=== PATIENT | male | born 1975 | race Caucasian/White ===

== ENCOUNTER 2018-02-09 12:18 | Emergency (ER) | payer OTHER ==
[2018-02-09 12:50] VITALS: BP 130/75
--- NOTE | 2018-02-09 12:51 | UC ---
Dizzy HPI - History Of Current Complaint Stated Complaint: PATEL,FEVER Time Seen by Provider: 02/09/18 12:44 Timing: Constant Severity Initially: Moderate Severity Currently: Moderate Character: Dizzy Aggravating Factor(s): Position Change Alleviating Factor(s): Lying Down Associated Signs And Symptoms: Positive: Nausea, Vomiting - Risk Factors Cardiac Risk Factors: Negative CVA Risk Factor: Negative - Allergies/Home Medications Allergies/Adverse Reactions: Allergies Allergy/AdvReac Type Severity Reaction Status Date / Time Penicillins Allergy Hives Verified 02/09/18 12:51 Home Medications: Home Medications Buprenorphine HCl/Naloxone HCl [Suboxone 4 mg-1 mg Sl Film] 1 each SL QPM [History Confirmed 02/09/18] Buprenorphine HCl/Naloxone HCl [Suboxone] 1 mis SL QAM 02/09/18 [History Confirmed 02/09/18] PMH/Surg Hx/FS Hx/Imm Hx Previously Healthy: Yes Review of Systems Constitutional: Fever Skin: Negative Eyes: Photophobia ENT: Negative Respiratory: Negative Cardiovascular: Negative Gastrointestinal: Abdominal Pain, Diarrhea, Nausea Motor: Negative Neurovascular: Negative Musculoskeletal: Negative Neurological: Headache Is Patient Immunocompromised?: No All Other Systems Reviewed And Are Negative: Yes Physical Exam Triage Information Reviewed: Yes Appearance: Ill-Appearing, Thin Vital Signs Reviewed: Yes Eye Exam: Normal Eyes: Positive: Conjunctiva Clear ENT Exam: Normal ENT: Positive: Normal ENT inspection Neck exam: Normal Neck: Positive: Other: - positive Kernig sign Respiratory Exam: Normal Respiratory: Positive: Chest non-tender Cardiovascular Exam: Normal Cardiovascular: Positive: RRR Abdominal Exam: Normal Abdomen Description: Positive: Soft, Other: - tender right lower quadrant, left lower quadrant, no rebound Psychological Exam: Normal Skin Exam: Normal - no track hodgson seen Dizzy Course/Dx - Differential Dx/Diagnosis Provider Diagnoses: fever, r/o meningitis Discharge - Sign-Out/Discharge Documenting (check all that apply): Patient Departure - Discharge Plan Condition: Guarded Disposition: TRANS HIGHER [facility] OF CARE FAC Referrals: Gui Crisostomo MD [Primary Care Provider] - - Billing Disposition and Condition Condition: GUARDED Disposition: Trans Higher Lvl of Care Fac
== END 2018-02-09 13:05 | disposition short-term general hospital (02) ==
LOC: UCCORT 12:18
DX: R50.9 Fever, unspecified (principal); Z88.0 Allergy status to penicillin
CPT/HCPCS: 99212; G0463

== ENCOUNTER 2018-02-10 16:19 | Emergency (ER) | payer OTHER ==
--- OUTSIDE RECORDS SUMMARY | 2018-02-10 17:57 | XMS REPORT ---
:1975 External Reference #:[id number] Author Organization [facility] Address [address] [place] [address] Phone [phone] Care Team Providers Name Role Phone HCP/LW on file Primary Care Physician Unavailable Payers Type Date Identification Numbers Payment Provider Subscriber Medicaid Expires: 2016 Policy Number: [id number] Medicaid Rufus Mcgee PayID: [id number] [address] [place] [address] Medigap Part B Expires: 2015 Policy Number: [id number] Medicaid Rufus Mcgee PayID: [id number] [address] [place] [address] Medigap Part B Expires: 2014 Policy Number: [id number] Medicaid Rufus Mcgee PayID: [id number] [address] [place] [address] Commercial Expires: 2017 Policy Number: Benjie Mcgee [id number] [employer] Name: [employer] [address] PayID: [id number] [place] [address] Problems Date Description Provider Status Onset: 07/08/2015 Opioid dependence, uncomplicated Gui Crisostomo M.D. Active Onset: 10/03/2015 Moderate recurrent major depression Gui Crisostomo M.D. 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 / film every afternoon; suboxone prescriber# [id number]; rx due 02/03/18 Suboxone 08/10/ Hx Film 8-2mg 30unit 1/2 film by Vivi Crisostomo, 2017 - s mouth Gui, 10/05/ 2x/day; M.D. 2017 suboxone prescriber# [id number]; Rx due 09/09/17 Suboxone 02/23/ Hx Film 8-2mg 15unit /2 film by Vivi Crisostomo 2016 - s mouth every Gui, morning; M.D. 2017 suboxone prescriber# [id number]; rx due 07/23/17 Suboxone 01/13/ Hx Film 8-2mg 30unit 1 by mouth Vivi Crisostomo 2016 - s every Gui, 02/23/ morning; M.D. 2016 suboxone prescriber# [id number] Suboxone 12/31/ Hx Film 8-2mg 15unit 1/2 film by Vivi Crisostomo 2016 - s mouth every Gui, morning; M.D. 2016 suboxone prescriber# [id number] Suboxone 10/06/ Hx Film 8-2mg 7units 08/04 film by Vivi Crisostomo 2016 - mouth every Gui, 12/31/ morning; M.D. 2016 suboxone prescriber# [id number] Suboxone 08/04/ Hx Film 8-2mg 19unit use 12/06 of Vivi Crisostomo 2016 - s a film Gui, 10/06/ every M.D. 2016 morning as described; rx may be filled on or after 08/06/16; suboxone prescriber# [id number] Suboxone 04/28/ Hx Film 8-2mg 21unit / film F11.20 Andressa, 2016 - s every [place], 08/04/ morning; M.D. 2016 suboxone prescriber# [id number] Buprenorphine 04/26/ Hx Tablets 8-2mg 21tabs 10/02 film F11.20 Silcoff, HCL-Naloxone 2015 - Sub every Gui, [facility] 04/28/ morning; rx M.D. 2015 due 04/28/16; suboxone prescriber# [id number] Suboxone 12/25/ Hx Film 8-2mg 30unit 10/02 film F11.20 Andressa, 2016 - s every [place], 04/26/ morning and M.D. 08/04 film in the afternoon; rx due 03/29/16; suboxone prescriber# [id number] Cymbalta 10/30/ Hx Caps DR 60mg 30caps take as F33.1 Andressa 2015 - Part directed, Gui, 07/10/ no more M.D. 2015 than 1 capsule/day ; for mood Suboxone 10/30/ Hx Film 8-2mg 30unit take 6mg F11.20 Andressa, 2016 - s (10/02 film) [place], 12/25/ in the M.D. 2015 morning and 1-2mg (08/08-08/04 film) in the afternoon Cymbalta 07/29/ Hx Caps DR 60mg 1 capsule F33.1 Unknown 2014 - Part every 4-5 10/30/ days; for 2015 mood Buprenorphine 06/25/ Hx Tablets 8-2mg 30tabs 1 tab by F11.20 Silcoff, HCL-Naloxone 2014 - Sub mouth every [place], [facility] 10/30/ morning (or M.D. 2015 3/4in in the morning and 08/04 in afternoon); suboxone prescriber# [id number] Buprenorphine 06/25/ Hx Tablets 2-0.5mg 30tabs 1 tab by F11.20 Silcoff, HCL-Naloxone 2014 - Sub mouth every Gui, [facility] 07/28/ day in the M.D. 2014 afternoon; suboxone prescriber# [id number] Cymbalta 06/24/ Hx Caps DR 60mg as F32.9 Unknown 2014 - Part directed, 06/25/ tapering 2014 down-1 by mouth every 5 days Buprenorphine 06/24/ Hx Tablets 8mg as Unknown HCL 2015 - Sub directed. 2 06/25/ by mouth 2014 every morning; for opioid addiction-t apering down Immunizations CPT Code Status Date Vaccine Lot # [id number] Given 04/26/2016 Influenza Virus Vaccine, Quadrivalent, Split, [id number] Preservative Free [id number] Given 07/08/2015 Influenza Virus Vaccine, Quadrivalent, Split, [id number] Preservative Free [id number] Refused 06/15/2017 Influenza Virus Vaccine, Quadrivalent, Split, Preservative Free Vital Signs Date Vital Result Comment 02/10/2018 BP Systolic 122 mmHg BP Diastolic 68 mmHg Body Temperature 98.1 F Weight 134.00 lb with shoes 01/20/2018 BP Systolic 122 mmHg BP Diastolic 64 mmHg 12/19/2017 BP Systolic 120 mmHg BP Diastolic 80 mmHg Weight 146.00 lb w/shoes 11/28/2017 BP Systolic 102 mmHg BP Diastolic 72 mmHg Weight 142.00 lb with shoes 10/24/2017 BP Systolic 110 mmHg BP Diastolic 70 mmHg Weight 150.00 lb w/workboots 10/05/2017 BP Systolic 116 mmHg BP Diastolic 76 mmHg Height 71 inches 5'11" w/workboots Weight 149.00 lb w/workboots BMI (Body Mass Index) 20.8 kg/m2 08/10/2017 BP Systolic 110 mmHg BP Diastolic 82 mmHg Weight 153.00 lb with shoes 06/15/2017 BP Systolic 126 mmHg BP Diastolic 82 mmHg Weight 156.00 lb 04/20/2017 BP Systolic 100 mmHg BP Diastolic 64 mmHg Weight 156.00 lb 02/23/2017 BP Systolic 100 mmHg BP Diastolic 80 mmHg Height 70 inches 5'10" Weight 154.00 lb BMI (Body Mass Index) 22.1 kg/m2 01/12/2017 BP Systolic 108 mmHg BP Diastolic 58 mmHg 12/08/2016 BP Systolic 106 mmHg BP Diastolic 78 mmHg Weight 163.00 lb w/shoes 10/06/2016 BP Systolic 104 mmHg BP Diastolic 64 mmHg Weight 157.00 lb 08/04/2016 BP Systolic 102 mmHg BP Diastolic 66 mmHg Weight 162.00 lb w/shoes 07/09/2016 BP Systolic 128 mmHg BP Diastolic 85 mmHg Height 71.5 inches 5'11.50" with boots Weight 167.00 lb with boots BMI (Body Mass Index) 23.0 kg/m2 04/26/2016 BP Systolic 100 mmHg BP Diastolic 80 mmHg Weight 174.00 lb w/shoes 03/26/2016 BP Systolic 116 mmHg BP Diastolic 80 mmHg 02/23/2016 BP Systolic 102 mmHg BP Diastolic 80 mmHg 01/23/2016 BP Systolic 118 mmHg BP Diastolic 86 mmHg Weight 170.00 lb 12/26/2015 BP Systolic 120 mmHg BP Diastolic 80 mmHg Height 71 inches 5'11" w/shoes Weight 170.00 lb w/shoes BMI (Body Mass Index) 23.7 kg/m2 12/01/2015 BP Systolic 120 mmHg BP Diastolic 78 mmHg Weight 168.00 lb with shoes 10/31/2015 BP Systolic 120 mmHg BP Diastolic 80 mmHg Weight 168.00 lb with sneakers 10/03/2015 BP Systolic 132 mmHg BP Diastolic 70 mmHg Weight 167.00 lb 08/29/2015 BP Systolic 118 mmHg BP Diastolic 80 mmHg Weight 170.00 lb with sneakers 07/29/2015 BP Systolic 106 mmHg BP Diastolic 78 mmHg Weight 171.00 lb w/shoes 07/08/2015 BP Systolic 132 mmHg BP Diastolic 84 mmHg Weight 167.00 lb 06/25/2015 BP Systolic 130 mmHg BP Diastolic 86 mmHg Height 70 inches 5'10" Weight 167.00 lb BMI (Body Mass Index) 24.0 kg/m2 Results Test Date Test Result H/L Range Note Ua RFX Micro & Culture II 02/09/2018 Urine Color YELLOW Yellow 1 Urine Clarity CLEAR Clear 1 Urine Glucose - Dipstick NEGATIVE mg/dL Negative 1 Urine Bilirubin - Dipstick NEGATIVE Negative 1 Urine Ketone NEGATIVE mg/dL Negative 1 Urine Specific [place] <=1.005 Low 1.010-1.030 1 Urine Blood NEGATIVE Negative 1 Urine PH 6.5 6.5-7.5 1 Urine Protein - Dipstick NEGATIVE mg/dL Negative 1 Urine Urobilinogen - Dipstick 0.2 E.U./dL 0.2-1.0 1 Urine Nitrite - Dipstick NEGATIVE Negative 1 Urine Leuk Esterase NEGATIVE Negative 1 Source: URINE, CLEAN CAT <SEE NOTE> 1, 2 Laboratory test finding 10/08/2017 Actin (Smooth Muscle) Antibody 6 units 0-19 3, 4 Ferritin 123 ng/mL 26-388 3 Liver Function Tests 10/08/2017 Total Protein 7.7 g/dL 6.4-8.2 3 Albumin 4.1 g/dL 3.4-5.0 3 Globulin 3.6 g/dL 1.9-4.3 3 Alb/Glob 1.1 ratio 3 Bilirubin,Total 0.8 mg/dL 0.2-1.0 3 Bilirubin,Direct 0.2 mg/dL 0.0-0.2 3 Bilirubin,Indirect 0.6 mg/dL 0.0-0.9 3 Sgot/Ast 20 U/L 15-37 3 SGPT/Alt 31 U/L 12-78 3 Alkaline Phosphatase 78 U/L 45-117 3 Iron-Tibc-%Sat 10/08/2017 Serum Iron 184 g/dL High 65-175 3 Total Iron Binding Capacity 393 g/dL 250-450 3 Transferrin %Saturation 47 % 12-57 3 Comprehensive Gloria Panel 10/08/2017 Anti-Dna Antibody ([place]) <1 IU/mL 0- 9 3, 5 SM Antibody <0.2 AI 0.0-0.9 3 UNDER BASTER Antibody <0.2 AI 0.0-0.9 3 Sjogrens Antibodies (Ssa) <0.2 AI 0.0-0.9 3 Antichromatin Antibodies <0.2 AI 0.0-0.9 3 Diamond-1 Antibody <0.2 AI 0.0-0.9 3 Sjogrens Antibodies (SSB) <0.2 AI 0.0-0.9 3 Centromere B Antibodies < 0.2 AI 0.0-0.9 3 Scleroderma Antibodies, SCL-70 <0.2 AI 0.0-0.9 3 See below: (SEE NOTE) 3, 6 Laboratory test finding 10/08/2017 Endomysial Antibody Iga Negative Negative 3 CBS W/Automated Diff 10/08/2017 White Blood Count 7.1 K/uL 3.4-10.5 3 Red Blood Count 4.97 M/uL 4.20-5.80 3 Hemoglobin 15.7 gm/dL 12.8-17.0 3 Hematocrit 45.4 % 38.0-48.0 3 Mean Cell Volume 91.3 fl 80.0-96.0 3 Mean Corpuscular HGB 31.6 pg 27.0-33.0 3 Mean Corpuscular HGB Conc 34.6 g/dL 31.7-36.0 3 Platelet Count 331 K/uL 155-360 3 Red Cell Distri Width SD 43.5 fl 36-51 3 Red Cell Distri Width %CV 13.4 % 11.6-15.8 3 Mean Platelet Volume 9.5 fL 6.6-10.6 3 Neut% 57.0 % 33.0-73.0 3 Lymph % 33.1 % 20.0-42.0 3 [place] % 6.5 % 0.0-10.0 3 Eo% 2.7 % 0.0-6.6 3 Bas% 0.7 % 0.0-1.1 3 Neut# 4.04 K/uL 1.8-7.0 3 Lymph # 2.35 K/uL 1.0-4.0 3 [place] # 0.46 K/uL 0.0-0.8 3 Eos # 0.19 K/uL 0.0-0.5 3 Baso # 0.05 K/uL 0.0-0.1 3 Basic Metabolic Panel 10/08/2017 Glucose 73 mg/dL Low 74-106 3 BUN 6 mg/dL Low 7-18 3 Creatinine 0.9 mg/dL 0.6-1.3 3 Glom Filtration Rate, Estimate >60 mL/min >60 3 If >60 mL/min >60 3, 7 BUN/Creat 6.6 ratio 3 Sodium 140 mmol/L 136-145 3 Potassium 3.7 mmol/L 3.5-5.1 3 Chloride 109 mmol/L High 98-107 3 Carbon Dioxide 24 mmol/L 21-32 3 Anion Gap 7 mEq/L Low 8-16 3 Calcium 8.9 mg/dL 8.5-10.1 3 Urine Drug Screen Inhouse 06/15/2017 Ua Cocaine - Ua Opiates - Ua Amphetamines - Urine Methanphetamines - Urine Benzodiazepines QN [place] - Urine Oxycodone QL - Laboratory test 04/26/2017 Vitamin D,25-Hydroxy 38.5 ng/mL 30.0-100.0 8 , 9 finding Laboratory test 04/26/2017 Testosterone Free 10.3 pg/mL 6.8-21.5 8 finding Direct Testosterone,Serum 385 ng/dL 264-916 8, 10 Laboratory test finding 04/26/2017 Hepatitis B Surface Negative Negative 8, 11 Antigen Ceruloplasmin 20.1 mg/dL 16.0-31.0 8 Protime 04/26/2017 Protime 13.0 seconds 12.0-14.4 8 Inr 1.0 0.9-1.1 8, 12 Urine Drug Screen Inhouse 04/20/2017 Ua Cocaine - Ua Opiates - Ua Amphetamines - Urine Methanphetamines - Urine Benzodiazepines QN [place] - Urine Oxycodone QL - Urine Drug Screen Inhouse 07/09/2016 Ua Cocaine - Ua Opiates - Ua Amphetamines - Urine Methanphetamines - Urine Benzodiazepines QN [place] - Urine Oxycodone QL - Urine Drug Screen Inhouse 02/23/2016 Ua Cocaine - Ua Opiates - Ua Amphetamines - Urine Methanphetamines - Urine Benzodiazepines QN [place] - Urine Oxycodone QL - Urine Drug Screen Inhouse 10/03/2015 Ua Cocaine - Ua Opiates - Ua Amphetamines - Urine Methanphetamines - Urine Benzodiazepines QN [place] - Urine Oxycodone QL - Laboratory test finding 07/29/2015 Hepatitis C Antibody Nonreactive Nonreactive Liver Function Panel 07/29/2015 Total Protein 7.0 g/dL 6.4-8.9 Albumin 4.5 g/dL 3.2-5.2 Globulin 2.5 g/dL 2-4 Albumin/Globulin Ratio 1.8 1-3 Total Bilirubin 0.60 mg/dL 0.2-1.0 Direct Bilirubin 0.10 mg/dL 0.03-0.18 Indirect Bilirubin 0.5 mg/dL 0.3-1.0 Alkaline Phosphatase 79 U/L 34-104 Alt 70 U/L High 7-52 Ast 48 U/L High 13-39 Urine Drug Screen Inhouse 06/25/2015 Ua Cocaine - Ua Opiates - Ua Amphetamines - Urine Methanphetamines - Urine Benzodiazepines QN [place] - Urine Oxycodone QL - 1 PATEL, FEVER, DIARRHEA, CRAMPING, CHILLS,SENT BY CC 2 URINE, CLEAN CATCH 3 R74.0 F3.1 E29.1 4 Negative 0 - 19 Weak positive 20 - 30 Moderate to strong positive >30 Actin Antibodies are found in 52-85% of patients with autoimmune hepatitis or chronic active hepatitis and in 22% of patients with primary biliary cirrhosis. 5 Negative <5 Equivocal 5 - 9 Positive >9 6 Autoantibody Disease Association Condition Frequency --------- Antinuclear Antibody, SLE, mixed connective Direct (GLORIA-D) tissue diseases --------- dsDNA SLE 40 - 60% --------- Chromatin Drug induced SLE 90% SLE 48 - 97% --------- SSA (Ro) SLE 25 - 35% Sjogren's Syndrome 40 - 70% Lupus 100% --------- SSB (La) SLE 10% Sjogren's Syndrome 30% --------- Sm (anti-Guzman) SLE 15 - 30% --------- UNDER BASTER Mixed Connective Tissue Disease 95% (U1 nRNP, SLE 30 - 50% anti-ribonucleoprotein) Polymyositis and/or Dermatomyositis 20% --------- Scl-70 (antiDNA Scleroderma (diffuse) 20 - 35% topoisomerase) Crest 13% --------- Diamond-1 Polymyositis and/or Dermatomyositis 20 - 40% --------- Centromere B Scleroderma - Crest variant 80% Performed at: RN - [facility] [address] [id number] Contact And Service Clerks Supervisor: Marlin Thomas MD, Phone: [phone] Note: Persistent reduction for 3 months or more in an eGFR <60 mL/min/1.73 m2 defines CKD. Patients with eGFR values >/=60 mL/min/1.73 m2 may also have CKD if evidence of persistent proteinuria is present. The original MDRD equation for estimated GFR is not valid for patients less than 18 years of age. Additional information may be found at www.kdoqi.org. 8 R74.0,E20.1,F33.1,E29.1 9 Vitamin D deficiency has been defined by the [place] of [employer] and an Endocrine Society practice guideline as a level of serum 25-OH vitamin D less than 20 ng/mL (1,2). The Endocrine Society went on to further define vitamin D insufficiency as a level between 21 and 29 ng/mL (2). 1. IOM ([place] of [employer]). 2010. Dietary reference intakes for calcium and D. [place]: The National Academies Press. 2. Chuck MF, Jose NC, Bessy PATEL, et al. Evaluation, treatment, and prevention of vitamin D deficiency: an Endocrine Society clinical practice guideline. JCEM. 2011 Jan; 96(7):1529-30. Performed at: RN - [facility] [address] [id number] Contact And Service Clerks Supervisor: Marlin Thomas MD, Phone: [phone] 10 Adult male reference interval is based on a population of healthy nonobese males (BMI <30) between 19 and 39 years old. madeleine Singleton.al. JCEM 2017,102;1655-7447. PMID: 47950339. 11 Performed at: RN - [facility] [address] [id number] Contact And Service Clerks Supervisor: Marlin Thomas MD, Phone: [phone] THERAPEUTIC INR RANGE: 2.0 - 3.0 DVT, Pulmonary embolus, prophylaxis against venous thrombosis or systemic embolization in high risk patients. 2.5 - 3.5 Mechanical heart valves Procedures Date CPT Code Description Status 07/08/2015 74518 Remove Impact Cerumen Requiring Instrument, Unilateral Completed Encounters Type Date Location Provider CPT E/M Dx Office Visit 01/20/2018 11:00a Main Office Gui Crisostomo M.D. 67474 F11.20 Z71.51 Office Visit 12/19/2017 10:15a Main Office Gui Crisostomo M.D. 62405 F11.20 Z71.51 Office Visit 11/28/2017 4:45p Main Office Gui Crisostomo M.D. 17211 F11.20 Z71.51 Office Visit 10/24/2017 10:15a Main Office Gui Crisostomo M.D. 86322 F11.20 Z71.51 R74.0 Office Visit 10/05/2017 2:30p Main Office Gui Crisostomo M.D. 74168 F11.20 Z71.51 R74.0 Office Visit 08/10/2017 11:00a Main Office Gui Crisostomo M.D. 43622 F11.20 Z71.51 R74.0 Office Visit 06/15/2017 10:30a Main Office Gui Crisostomo M.D. 51159 F11.20 Z71.51 R74.0 Z23 Office Visit 04/20/2017 10:30a Main Office Gui Crisostomo M.D. 98899 F11.20 Z71.51 R74.0 E29.1 Office Visit 02/23/2017 11:00a Main Office Gui Crisostomo M.D. 75492 F11.20 Z71.51 R74.0 Office Visit 01/12/2017 11:30a Main Office Gui Crisostomo M.D. 72500 F11.20 Z71.51 Office Visit 12/08/2016 2:30p Main Office Gui Crisostomo M.D. 82713 F11.20 Z71.51 Office Visit 10/06/2016 5:00p Main Office Gui Crisostomo M.D. 06579 F11.20 Z71.51 Office Visit 08/04/2016 4:45p Main Office Gui Crisostomo M.D. 04728 F11.20 Z71.51 Office Visit 07/09/2016 5:00p Main Office Gui Crisostomo M.D. 51697 F11.20 Z71.51 R74.0 E29.1 Office Visit 04/26/2016 11:15a Main Office Gui Crisostomo M.D. 67946 F11.20 Z71.51 R74.0 E29.1 Z23 Z41.8 Office Visit 03/26/2016 1:45p Main Office Gui Crisostomo M.D. 63138 F11.20 Z71.51 F33.1 R74.0 E29.1 Office Visit 02/23/2016 1:45p Main Office Gui Crisostomo M.D. 50878 F11.20 Z71.51 F33.1 R74.0 E29.1 Office Visit 01/23/2016 2:45p Main Office Gui Crisostomo M.D. 42888 F11.20 Z71.51 F33.1 R74.0 E29.1 Office Visit 12/26/2015 10:15a Main Office Gui Crisostomo M.D. 74048 F11.20 Z71.51 F33.1 Office Visit 12/01/2015 10:45a Main Office Gui Crisostomo M.D. 21098 F11.20 F33.1 Z71.51 Office Visit 10/31/2015 10:15a Main Office Gui Crisostomo M.D. 69886 F11.20 F33.1 Office Visit 10/03/2015 1:45p Main Office Gui Crisostomo M.D. 79557 F11.20 F33.1 Z71.51 Office Visit 08/29/2015 2:45p Main Office Gui Crisostomo M.D. 32527 F11.20 F32.9 R74.0 E29.1 R68.82 Office Visit 07/29/2015 2:30p Main Office Gui Crisostomo M.D. 98312 F11.20 F32.9 R74.0 E29.1 R68.82 Office Visit 07/08/2015 4:15p Main Office Gui Crisostomo M.D. 71647 F11.20 H61.23 Z23 Z71.51 Office Visit 06/25/2015 3:30p Main Office Gui Crisostomo M.D. 80017 F11.20 F32.9 F17.220 Z71.51 Plan of Care Future Appointment(s):02/20/2018 10:15 am - Gui Crisostomo M.D. at Main [id number]/10/2018 - Gui Crisostomo M.D.R51 HeadacheComments:New onset severe headache going on 5 days. The positional component is concerning (reminiscent of anepidural/dural leak headache). DDx incl meningitis, new onset migraine, SAH (he had an unremarkable CT brain at ER but no CTA) and medication S/E. Case d/w Dr Munson who suggested pt be sent to ER. Pt is going to drive himself directly (he drove himself here and feels safe). I called the ER and spoke to charge nurse (Ronnell) and detailed the case and Dr Munson's advice.R11.2 Nausea with vomiting, [id number] Visual discomfort, [id number] Opioid dependence, uncomplicated
[2018-02-10] MEDS ORDERED: Acetaminophen TAB* 325 MG PO ONE (19:03)
[2018-02-10 20:24] LABS: ABS Basophils 0.1 10^3/ul (0-0.2); ABS Eosinophils 0 10^3/ul (0-0.6); ABS Lymphocytes 1.6 10^3/ul (1.0-4.8); ABS Monocytes 0.3 10^3/ul (0-0.8); ABS Neutrophils 8.1 10^3/ul (1.5-7.7); ABS Nucleated RBC 0 10^3/ul; Eosinophil % 0.5 % (0-6); Hematocrit 44 % (42-52); Lymphocyte % 15.6 % (25-47); Mean Corpuscular HGB Conc 34 g/dl (31-36); Mean Corpuscular Hemoglobin 31 pg (27-31); Mean Corpuscular Volume 92 fL (80-94); Mean Platelet Volume 7.3 um3 (7.4-10.4); Nucleated Red Blood Cells % 0; Platelet Count 382 10^3/ul (150-450); Red Blood Count 4.79 10^6/ul (4.00-5.40); Red Cell Distribution Width 13 % (10.5-15); White Blood Count 10.1 10^3/ul (3.5-10.8)
[2018-02-10 20:41] LABS: EGFR Non-African American 128.5 (>60)
--- NOTE | 2018-02-10 20:51 | ED ---
Headache - HPI Summary HPI Summary: Patient complains of new onset headache and neck stiffness 5 days ago with associated symptoms of chills, occasional nausea/vomiting 2, sensitivity to light and sound. Symptoms are intermittent, worse with movement, better with lying flat. Ibuprofen offers no relief. Patient seen at [facility] yesterday for same symptoms. States PCP saw results of yesterday's ED visit and advised patient to come to the ED. Denies fever, focal deficits, cough, sore throat, ear pain, chest pain, SOB, abdominal pain, change in urine or BM. Medical history is none. No anti-coag. Patient has been on Suboxone for 7 years with recent change to generic Suboxone last Tuesday. Symptoms started on Tuesday, and patient is concerned symptoms are related to medicine change. Results from [facility]: CT head negative for acute process. Labs unremarkable. Patient pain improved with Toradol, Reglan, Benadryl. - History Of Current Complaint Chief Complaint: EDHeadache Stated Complaint: HEADACHE Time Seen by Provider: 02/10/18 18:35 Hx Obtained From: Patient Onset/Duration: Sudden Onset Initially Headache Was: Moderate Currently Pain Is: Mild Timing: Intermittent, Lasting: Character: Throbbing Location of Headache: Frontal Aggravating Factor: Position Change Allevating Factors: Rest Associated Signs And Symptoms: Nausea, Vomiting, Neck Pain, Visual Changes - Risk Factors SAH Risk Factors: Negative Meningitis Risk Factors: Negative SDH Risk Factors: Male - Allergies/Home Medications Allergies/Adverse Reactions: Allergies Allergy/AdvReac Type Severity Reaction Status Date / Time Penicillins Allergy Hives Verified 02/10/18 16:45 Home Medications: Home Medications Buprenorphine HCl/Naloxone HCl [Buprenorp-Nalox 8-2 mg Sl Film] 0.5 film SL .IN THE AFTERNOON 02/10/18 [History Confirmed 02/10/18] Buprenorphine HCl/Naloxone HCl [Buprenorp-Nalox 8-2 mg Sl Film] 1 film SL QAM [History Confirmed 02/10/18] Ibuprofen TAB* [Motrin TAB* 800 MG] 800 mg PO Q6H PRN 02/10/18 [History Confirmed 02/10/18] PMH/Surg Hx/FS Hx/Imm Hx Endocrine/Hematology History: Denies: Hx Anticoagulant Therapy History: Denies: Hx Dialysis Neurological History: Denies: Hx CVA - Surgical History Surgery Procedure, Year, and Place: lung for blebs ~2003- Infectious Disease History: No Infectious Disease History: Denies: Traveled Outside the [place] in Last 30 Days - Social History Alcohol Use: None Hx Substance Use: Yes Substance Use Type: Reports: Other Substance Use Comment - Amount & Last Used: suboxone Smoking Status (MU): Former Smoker Review of Systems Positive: Chills Positive: Photophobia ENT: Negative Cardiovascular: Negative Respiratory: Negative Positive: Vomiting, Nausea Genitourinary: Negative Musculoskeletal: Negative Skin: Negative Positive: Headache Psychological: Normal All Other Systems Reviewed And Are Negative: Yes Physical Exam - Summary Physical Exam Summary: Negative Kernig's, negative Brudzinski. Full range of motion of neck with some discomfort with full flexion Triage Information Reviewed: Yes Vital Signs On Initial Exam: Initial Vitals Temp Pulse Resp BP Pulse Ox 97.5 F 68 16 123/87 100 02/10/18 16:42 02/10/18 16:42 02/10/18 16:42 02/10/18 16:42 02/10/18 16:42 Vital Signs Reviewed: Yes Appearance: Positive: Well-Appearing Skin: Positive: Warm Head/Face: Positive: Normal Head/Face Inspection Eyes: Positive: Normal ENT: Positive: Normal ENT inspection Neck: Positive: Supple Respiratory/Lung Sounds: Positive: Clear to Auscultation Cardiovascular: Positive: Normal Abdomen Description: Positive: Nontender Musculoskeletal: Positive: Normal Neurological: Positive: Normal Psychiatric: Positive: Normal AVPU Assessment: Alert - Kin Coma Scale Best Eye Response: 4 - Spontaneous Best Motor Response: 6 - Obeys Commands Best Verbal Response: 5 - Oriented Coma Scale Total: 15 Diagnostics - Vital Signs Vital Signs Temp Pulse Resp BP Pulse Ox 02/10/18 16:42 97.5 F 68 16 123/87 100 - Laboratory Lab Results: Lab Results 02/10/18 02/10/18 02/10/18 Range/Units 20:06 20:06 20:06 WBC 10.1 (3.5-10.8) 10^3/ul RBC 4.79 (4.00-5.40) 10^6/ul Hgb 15.0 (14.0-18.0) g/dl Hct 44 (42-52) % MCV 92 (80-94) fL MCH 31 (27-31) pg MCHC 34 (31-36) g/dl RDW 13 (10.5-15) % Plt Count 382 (150-450) 10^3/ul MPV 7.3 L (7.4-10.4) um3 Neut % (Auto) 80.5 (38-83) % Lymph % (Auto) 15.6 L (25-47) % [place] % (Auto) 2.8 (0-7) % Eos % (Auto) 0.5 (0-6) % Baso % (Auto) 0.6 (0-2) % Absolute Neuts (auto) 8.1 H (1.5-7.7) 10^3/ul Absolute Lymphs (auto) 1.6 (1.0-4.8) 10^3/ul Absolute Monos (auto) 0.3 (0-0.8) 10^3/ul Absolute Eos (auto) 0 (0-0.6) 10^3/ul Absolute Basos (auto) 0.1 (0-0.2) 10^3/ul Absolute Nucleated RBC 0 10^3/ul Nucleated RBC % 0 ESR Pending Sodium 138 (135-145) mmol/L Potassium 3.7 (3.5-5.0) mmol/L Chloride 102 (101-111) mmol/L Carbon Dioxide 28 (22-32) mmol/L Anion Gap 8 (2-11) mmol/L BUN 10 (6-24) mg/dL Creatinine 0.68 (0.67-1.17) mg/dL Est GFR ( Amer) 155.5 (>60) Est GFR (Non-Af Amer) 128.5 (>60) BUN/Creatinine Ratio 14.7 (8-20) Glucose 97 (70-100) mg/dL Lactic Acid 0.9 (0.5-2.0) mmol/L Calcium 9.8 (8.6-10.3) mg/dL Total Bilirubin 0.70 (0.2-1.0) mg/dL AST 16 (13-39) U/L ALT 18 (7-52) U/L Alkaline Phosphatase 52 (34-104) U/L C-Reactive Protein < 1.00 (<8.01) mg/L Total Protein 7.9 (6.4-8.9) g/dL Albumin 4.9 (3.2-5.2) g/dL Globulin 3.0 (2-4) g/dL Albumin/Globulin Ratio 1.6 (1-3) Result Diagrams: 02/10/18 20:06 02/10/18 20:06 Lab Statement: Any lab studies that have been ordered have been reviewed, and results considered in the medical decision making process. Headache Course/Dx - Course Course Of Treatment: Patient complains of new onset headache and neck stiffness 5 days ago with associated symptoms of chills, occasional nausea/vomiting 2, sensitivity to light and sound. Symptoms are intermittent, worse with movement , better with lying flat. Ibuprofen offers no relief. Patient seen at [facility] yesterday for same symptoms. States PCP saw results of yesterday's ED visit and advised patient to come to the ED. Denies fever, focal deficits, cough, sore throat, ear pain, chest pain, SOB, abdominal pain, change in urine or BM. Medical history is none. No anti-coag. Patient has been on Suboxone for 7 years with recent change to generic Suboxone last Tuesday. Symptoms started on Tuesday, and patient is concerned symptoms are related to medicine change. Results from [facility]: CT head negative for acute process. Labs unremarkable. Patient pain improved with Toradol, Reglan, Benadryl. Vital signs within normal limits and stable. Labs unremarkable. Discussed CTA head and neck results with Dr. Lucia of radiology. Dr. 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 Patient has no focal symptoms on the left side, including no vision change in left eye. Headache symptoms are bilateral frontal , radiating over the top and back of his head. Discussed patient with Dr. Rodrigues who agrees. Discharge patient with Rx for Toradol, follow-up with primary care. - Diagnoses Provider Diagnoses: Headache Discharge - Sign-Out/Discharge Documenting (check all that apply): Patient Departure - Discharge Plan Condition: Stable Disposition: HOME Referrals: Gui Crisostomo MD [Primary Care Provider] - Additional Instructions: Follow-up with primary care. Return to the ED for any new or worsening symptoms - Billing Disposition and Condition Condition: STABLE Disposition: Home
[2018-02-10 21:45] LABS: Urine Appearance Clear; Urine Blood 1+ (Negative); Urine Color Straw; Urine Ketones Negative (Negative); Urine Protein Negative (Negative); Urine Red Blood Cell Trace(0-2/hpf) (Absent); Urine Specific Gravity 1.008 (1.010-1.030); Urine Urobilinogen Negative (Negative); Urine White Blood Cell Trace(0-5/hpf) (Absent)
[2018-02-10] MEDS ORDERED: Iohexol 350* (CONTRAST) 500 ML MDV IV ONE (22:27)
[2018-02-11 00:40] VITALS: BP 144/100
--- NOTE | 2018-02-11 09:22 | RAD ---
CPT II: CPT II Codes: 3100F INDICATION: Head and neck pain COMPARISON: None TECHNIQUE: A CT angiogram of the head and neck was performed with 80 cc of Omnipaque 350. Contiguous axial sections were obtained from the thoracic inlet through the [place]. Images were reconstructed in the sagittal, coronal planes and in a 3-D volume rendered format. The distal cervical internal carotid artery diameter is used as the denominater for stenosis measurement. CTA NECK: The common and internal carotid arteries are patent without hemodynamically significant stenosis. Right: The right common carotid artery measures 8 mm in short access diameter. The right carotid bulb measures 8 mm in short axis diameter yielding 0% degree stenosis. Left: The left common carotid artery measures 8 mm in diameter. Immediately above the bifurcation the left internal carotid artery measures 9 mm in diameter yielding 0% degree stenosis. The vertebral arteries are patent without gross abnormality. CTA of the brain: The internal carotid, anterior and middle cerebral arteries appear are patent without high grade stenosis or occlusion. The vertebral, basilar and posterior cerebral arteries appear patent without high grade stenosis or occlusion. The [place] is complete with bilateral posterior communicating arteries identified. No focal luminal filling defect, aneurysm or vascular malformation is seen. NON-ARTERIAL FINDINGS: The right cavernous sinus is better depicted in the left on this arterial phase imaging. The right transverse sinus is slightly diminutive relative to the left. The lungs exhibit mild groundglass opacification and centrilobular emphysematous changes as well as some pleural airspace disease at the lung apices. IMPRESSION: 1. Normal CT angiography of the head and neck. 2. There is increased opacification of the right cavernous sinus relative to the left, but evaluation is limited on this arterial phase imaging. 3. There is centrilobular emphysematous disease of the lungs that appears advanced for the patient's age.
== END 2018-02-11 00:30 | disposition home or self-care (01) ==
LOC: ED 16:19
DX: R51 Headache (principal); M43.6 Torticollis; J43.2 Centrilobular emphysema; Z87.891 Personal history of nicotine dependence; Z88.0 Allergy status to penicillin
CPT/HCPCS: 36415; 70496; 70498; 80053; 81003; 81015; 83605; 85025; 85652; 86140; 87040; 87086; 99283; A9270-GY; Q9967